=== PATIENT | female | born 1995 | race Two or more races ===

== ENCOUNTER 2024-03-22 08:56 | Emergency (ER) | payer MEDICAID ==
[~2024-03-22] VITALS: Ht 154.9 cm; Wt 75.4 kg
[2024-03-22 09:28] VITALS: BP 134/83; PULSE 92; RESP 16; TEMP 98.6; O2SAT 98
[2024-03-22] MEDS: SUMAtriptan SUCCINATE 6 MG/0.5 ML VL SC ONE (10:09)
[2024-03-22] MEDS ORDERED: ZOFR4T PO (10:29)
[2024-03-22] MEDS ORDERED: SUMA50TA2 PO (10:29)
== END 2024-03-22 10:34 | disposition home or self-care (01) ==
LOC: ER 08:56
DX: G43.009 Migraine without aura, not intractable, without status migrainosus (principal)
CPT/HCPCS: 96372; 99283; J3030